=== PATIENT | female | born 1995 | race Caucasian/White ===

== ENCOUNTER 2016-11-24 13:51 | Outpatient (CLI) | payer OTHER ==
[~2016-11-24] VITALS: Ht 157.5 cm; Wt 121.3 kg
[2016-11-24 14:13] VITALS: BP 135/73
[2016-11-24 15:17] VITALS: BP 127/63
[2016-11-24 18:20] VITALS: BP 125/60
[2016-11-24 19:22] VITALS: BP 121/75
[2016-11-25 02:46] VITALS: BP 113/58
[2016-11-25 07:18] VITALS: BP 142/80
== END 2016-11-25 11:17 | disposition home or self-care (01) ==
LOC: LDRP-OP 13:51 → 2WEST 13:52 → LDRP-OP 02-01 14:36
DX: O35.8XX0 Maternal care for other (suspected) fetal abnormality and damage, not applicable or unspecified (principal); Z3A.34 34 weeks gestation of pregnancy; O34.593 Maternal care for other abnormalities of gravid uterus, third trimester; Q51.2 Other doubling of uterus
CPT/HCPCS: 59025; 76818; G0378; J7120

== ENCOUNTER 2016-12-04 12:51 | Inpatient (IN) | payer OTHER ==
[2016-12-04] VITALS (14 sets, daily range): BP systolic 112–137; BP diastolic 57–70
[~2016-12-04] VITALS: Ht 157.5 cm; Wt 121.1 kg
[2016-12-04 14:38] LABS: EOSINOPHIL (%) 0.4 % (0-5); EOSINOPHIL COUNT 0.1 K/uL (0-0.3); HEMATOCRIT 36.2 % (36.0-46.0); IMMATURE GRANULOCYTE (%) 0.5 % (0.0-0.7); IMMATURE GRANULOCYTE COUNT 0.1 K/uL; INSTRUMENT ABS NEUTROPHIL CT 9.2 K/uL; LYMPHOCYTE COUNT 1.6 K/uL (1.0-2.8); MCH 28.4 PG (29.0-34.0); MCHC 32.6 G/DL (30.0-36.0); MEAN PLAT.VOLUME 10.1 uM^3 (9.5-12.4); MONOCYTE (%) 3.8 % (3-12); MONOCYTE COUNT 0.4 K/uL (0-0.8); NEUTROPHIL (%) 81.2 % (45-76); NEUTROPHIL COUNT 9.2 K/uL (1.8-6.4); PLATELET COUNT 221 K/uL (156-360); RBC DIS.WIDTH-CV 14.2 % (11.8-14.6); RBC DIS.WIDTH-SD 44.2 % (39-53); RED BLOOD COUNT 4.16 M/uL (3.80-5.20); WHITE BLOOD COUNT 11.3 K/uL (4.1-10.2)
[2016-12-04 14:52] LABS: ANION GAP 9 MEQ/L (2-14); CHLORIDE 106 MEQ/L (99-109); POTASSIUM 4.2 MEQ/L (3.7-5.4); SAMPLE HEMOLYSIS CHECK 0; SAMPLE ICTERIC CHECK 0; SAMPLE LIPEMIA CHECK 0; SODIUM 138 MEQ/L (136-147); TOTAL BILIRUBIN 0.3 MG/DL (0.0-1.0)
[2016-12-04 14:57] LABS: ALKALINE PHOSPHATASE 103 IU/L (3-129); GFR ESTIMATE (CALCULATED) > 59 mL/min/; GLUCOSE 72 mg/dL (70-99); LACTATE DEHYDROGENASE 105 IU/L (20-246); UREA NITROGEN (BUN) 4 mg/dL (9-23); URIC ACID 4.3 mg/dL (3.1-9.2)
[2016-12-04 15:22] LABS: INTER. NORMALIZED RATIO 0.9; PTT 27.3 (25-32)
[2016-12-04 15:25] LABS: FIBRINOGEN 479 MG/DL (160-450); PROTHROMBIN TIME 9.4 (9.2-11.2)
[2016-12-04 15:55] LABS: AMPHETAMINES QUANT VALUE 0 NG/ML; BARBITUATES QUANT VALUE 0 NG/ML; BENZODIAZEPINES QUANT VALUE 0 NG/ML; BENZODIAZEPINES, URINE SCREEN Negative (200 ng/mL); MARIJUANA QUANT VALUE 0 NG/ML; OPIATES QUANTITATIVE VALUE 0 NG/ML; PHENCYCLIDINE QUANT VALUE 0 NG/ML
[2016-12-05] VITALS (17 sets, daily range): BP systolic 109–140; BP diastolic 56–77
[2016-12-06] VITALS (7 sets, daily range): BP systolic 118–131; BP diastolic 63–79
[2016-12-06 06:52] LABS: EOSINOPHIL (%) 0.9 % (0-5); EOSINOPHIL COUNT 0.1 K/uL (0-0.3); HEMATOCRIT 31.1 % (36.0-46.0); IMMATURE GRANULOCYTE (%) 0.3 % (0.0-0.7); INSTRUMENT ABS NEUTROPHIL CT 7.7 K/uL; LYMPHOCYTE COUNT 2.2 K/uL (1.0-2.8); MCH 28.3 PG (29.0-34.0); MCHC 32.5 G/DL (30.0-36.0); MCV 87.1 FL (83-99); MEAN PLAT.VOLUME 10.2 uM^3 (9.5-12.4); MONOCYTE (%) 7.5 % (3-12); MONOCYTE COUNT 0.8 K/uL (0-0.8); NEUTROPHIL (%) 70.6 % (45-76); NEUTROPHIL COUNT 7.7 K/uL (1.8-6.4); PLATELET COUNT 207 K/uL (156-360); RBC DIS.WIDTH-CV 13.9 % (11.8-14.6); RBC DIS.WIDTH-SD 43.6 % (39-53); RED BLOOD COUNT 3.57 M/uL (3.80-5.20); WHITE BLOOD COUNT 10.9 K/uL (4.1-10.2)
[2016-12-06 07:23] LABS: Estimated Average Glucose 108 mg/dL (70-123); HEMOGLOBIN A1c (GLYCOHEMOGLOB) 5.4 % HGB (Below 5.7)
[2016-12-07] MEDS ORDERED: HYDROMORPHONE HC2 MG PO (10:40)
[2016-12-07] MEDS ORDERED: IBUPROFEN800 MG PO (10:40)
[2016-12-07 10:50] LABS: TREPONEMA ANTIBODY NEGATIVE (NEGATIVE)
[2016-12-07 15:10] VITALS: BP 131/83
[2016-12-07 20:30] VITALS: BP 146/85
[2016-12-07 22:30] VITALS: BP 146/85
[2016-12-07 23:30] VITALS: BP 132/82
[2016-12-08 06:59] VITALS: BP 137/85
== END 2016-12-08 13:37 | disposition home or self-care (01) | DRG 765 ==
LOC: LDRP-OP 12:51 → 2WEST 12:52 → LDRP-OP 02-01 11:21
PROVIDERS: Advanced Practice Midwife; Obstetrics & Gynecology
PROC: 10D00Z1 Extraction of Products of Conception, Low, Open Approach (ICD-10-PCS; principal; 2016-12-05)
PROC: 3E0R3CZ (ICD-10-PCS; principal; 2016-12-05)
PROC: 00HU33Z Insertion of Infusion Device into Spinal Canal, Percutaneous Approach (ICD-10-PCS; principal; 2016-12-05)
DX: O36.4XX1 Maternal care for intrauterine death, fetus 1 (principal); Z68.42 Body mass index [BMI] 45.0-49.9, adult; O61.9 Failed induction of labor, unspecified; O99.333 Smoking (tobacco) complicating pregnancy, third trimester; F17.200 Nicotine dependence, unspecified, uncomplicated; O34.03 Maternal care for unspecified congenital malformation of uterus, third trimester; O99.213 Obesity complicating pregnancy, third trimester; E66.01 Morbid (severe) obesity due to excess calories; Z3A.36 36 weeks gestation of pregnancy; O62.0 Primary inadequate contractions
CPT/HCPCS: 80053; 80306 90; 83036; 83615; 84443; 84550; 85025; 85384; 85610; 85730; 86780; 86850; 86900; 86901; 88307; C1755; G0378; J0690; J1170; J2250; J2270; J2274; J2795; J3010; J7120